=== PATIENT | female | born 1970 | race Caucasian/White ===

== ENCOUNTER 2018-07-10 20:11 | Inpatient (IN) | payer OTHER, SELFPAY ==
[2018-07-10 20:12] VITALS: BP 137/89; PULSE 120; RESP 18; TEMP 36.7; O2SAT 96; BMI 22.4
--- NOTE | 2018-07-10 22:00 | ED.DCSUM_ITS ---
- ER Visit Summary Date of Service: 07/10/18 Chief Complaint: Requesting detox for alcoholism. History of Present Illness: The patient is a [address] of alcohol abuse. States she drinks about 2 bottles of wine each day. Starts drinking early in the morning. She knows she has a problem and wants to get help. States she did go through a detox program I think around [place] around October 2017. She denies any other drug abuse. She denies any recent medical problems. Physical Examination: Well-appearing middle-age female. Vital signs are stable afebrile. Pulse ox 96% on room air. Pulse 120. H EENT exam unremarkable. Moist weeks membranes. Neck nontender no lymphadenopathy. Lungs to auscultation bilaterally. Heart regular rhythm no murmur rate of abdomen soft and nontender. Chest nontender. Extremities moves all 4. Calves nontender no edema. Neurologically she is awake alert with no focal motor deficits. Back exam nontender. Test Results: None Emergency Department Course and Treatment: Patient requesting detox. I very spoken to the hospitalist will be down to evaluate her determine if she meets criteria for admission. Treatment Plan: Patient will be admitted for detox Disposition: Admission Impression: Requesting detox for alcohol abuse History of alcoholism This note was generated with [employer] dictation software. It may contain incorrect words, spelling, and punctuation that were not noted in review of the chart prior to signing ED Disposition - Plan for ED Patient: Referrals: [facility] Doctor,Out of [Primary Care Provider] -
[2018-07-10] MEDS: LORazepam 1 MG Tablet PO (22:43)
[2018-07-10] MEDS: Ondansetron ODT 4 MG Tablet PO (22:43)
[2018-07-10 22:44] VITALS: BP 138/80; PULSE 94; RESP 20; O2SAT 100
--- NOTE | 2018-07-10 23:05 | HP.PCM_ITS ---
Problem List (1) Alcohol withdrawal Status: Acute History of Present Illness Date of Admission: 07/10/18 Chief Complaint: Tremulousness and anxiety. The patient is a 47 year old F who drinks 2 bottles of wine per day, requesting treatment for alcohol withdrawal. Patient's last drink was at 1500 today and since then has been having increasing tremulousness shakiness and anxiety. Patient does get hot flashes but is actually more of a chronic process which she thinks may be attributable to menopause. Patient presents emergency room requesting treatments did receive Ativan in the emergency room. Patient has quit before back in November but relapsed. [] Past Medical History Allergies shrimp Allergy (Verified 07/10/18 20:14) Hives Home Medications: Ambulatory Orders Medication Instructions Recorded NK 07/10/18 Smoking Status: Heavy Smoker (>10/day) Tobacco Use: Cigarettes Alcohol: Heavy Drugs: None - *Family History Maternal History Items: - - No alcoholism Review of Systems Constitutional: Denies: Anorexia, Night Sweats Eyes: Denies: Blurred vision, Double vision HEENT: Denies: Head Aches, Sinus Congestion, Sinus Drainage Cardiovascular: Denies: Chest Pain, Palpitations Respiratory: Denies: Cough, Shortness of breath at rest, Sputum production Gastrointestinal: Reports: Nausea, - - Dry heaves. Denies: Abdominal Pain Genitourinary: Denies: Dysuria Musculoskeletal: Denies: Joint Pain, Joint Tenderness Skin: Denies: Rash, Wounds Neurological: Denies: Blurred vision, Double vision, Focal weakness, Numbness, Tingling Psychiatric: Denies: Anxiety, Depression Endocrine: Denies: Change in Body Habitus, Heat/ Cold Intolerance Hematologic/ Lymphatic: Denies: Easy Bruising, Easy Bleeding, Hx of blood clot Comment: A 10 point review of systems were negative except as mentioned in the history of present illness and the other review of systems. VTE Information - Inpt Only VTE Present on Admission: No VTE Mechan Device Prophylaxis: None VTE Pharm Prophylaxis ordered?: No Reason prophylaxis not ordered:: Procedure Not Indicated Patient Problems: Active and Suspected Problems Alcohol withdrawal (Acute) - Physical Exam General: Alert, Cooperative, No apparent distress, - - Slight tremulousness. Diaphoretic. HEENT: Atraumatic, Normocephalic, - - No scleral icterus Oral: Moist Mucosa, No Gingival or Mucosal Lesions/ Ulcerations Neck: No Nodes, Thyroid Normal Size and Texture Lungs: Clear to auscultation, Normal air movement, No rhonchi, No wheeze Cardiovascular: Regular rate, Regular Rhythm, Normal S1, Normal S2, No murmurs Abdomen: Bowel Sounds Present, Soft, Non Tender, Non-Distended, No Hepato- splenomegaly Extremities: No edema, No Calf Tenderness Skin: No rashes, No breakdown Musculoskeletal: No Tenderness to Palpation of Joints or Extremities, No Muscle Wasting Psych/Mental Status: Appropriate, Anxious Vital Signs Temp Pulse Resp BP Pulse Ox 36.7 C 94 20 H 138/80 H 100 07/10/18 20:12 07/10/18 22:44 07/10/18 22:44 07/10/18 22:44 07/10/18 22:44 Oxygen Delivery Method Room Air Weight: 61.235 kg Body Mass Index (BMI) 22.4 Assessment/Plan All Active Problems Alcohol withdrawal (Acute) 1. Acute alcohol withdrawal: Initial CIWA of 11. Patient agreed to inpatient treatment at this time. Will initiate the medical stabilization protocol with Ativan taper. Additionally patient will have other medications available for other somatic complaints. Patient advised that her symptoms are to improve while she was here but also advised that its potential that, given the amount that she drinks per day, that she may experience worsening symptoms up to 96 hours after her last drink. Patient was informed that seizures are possibility for alcohol withdrawal but she is never had that before so I told her that is un likely to happen for her but certainly could not rule out out. Code Visit Inpatient E&M: 11701 Init Hosp L2
[2018-07-10 23:24] VITALS: BMI 21.5
[2018-07-10 23:40] VITALS: BP 129/72; PULSE 93; RESP 16; TEMP 37.1; O2SAT 97
[2018-07-10 23:51] LABS: Basophil# 0.02 X10^3/uL; Basophil% 0.3 % (0-1); Eosinophil# 0.09 X10^3/uL; Eosinophils% 1.4 % (0-5); Hematocrit 40.6 % (37-47); Hemoglobin 14.3 g/dl (12.0-15.0); Mean Corp Hgb Conc 35.2 g/gl (32-36); Mean Corpuscular Hgb 36.5 pg (27.0-32.0); Mean Corpuscular Volume 103.6 fL (81-99); Mean Platelet Vol. 10.4 fl (6.2-12.0); Monocyte# 0.52 X10^3/uL; Monocyte% 8.1 % (0-10); Neutrophil # 3.99 X10^3/uL (2.7-7.7); POSITIVE COUNT NO; POSITIVE DIFFERENTIAL NO; POSITIVE MORPHOLOGY NO; Platelet Count 160 K/mm3 (150-450); RBC Distribution Width CV 11.6 % (11.6-14.6); RBC Distribution Width SD 43.5 fl (35.1-43.9); Red Blood Count 3.92 M/mm3 (4.2-5.4); White Blood Count 6.4 K/mm3 (4.4-11.0)
[2018-07-11] VITALS (11 sets, daily range): BP systolic 115–141; BP diastolic 72–102; PULSE 80–98; RESP 16–18; TEMP 36.8–37.4; O2SAT 95–98
[2018-07-11 00:08] LABS: ALB/GLOB Ratio 1.2 RATIO (0.9-2.4); AST(SGOT) 157 U/L (15-37); Alanine Aminotransfer ALT/SGPT 189 U/L (13-56); Albumin, Serum 3.9 g/dL (3.2-5.0); Alkaline Phosphatase 109 U/L (45-117); Anion Gap 7 (5-15); BUN 9 mg/dL (7-18); BUN/Creat Ratio 17.7 RATIO (10-20); Calcium,Total 8.8 mg/dL (8.5-10.1); Chloride 105 mmol/L (98-107); Creatinine, Serum 0.51 mg/dL (0.55-1.02); EST Glomerular Filtration Rate 136 mL/min (>60); Est Glom Filt Rate - Afr Amer 165 mL/min (>60); Estimated Creatinine Clearance 120.07 ml/min; Globulin 3.2 g/dL (2.2-4.2); Glucose 82 mg/dL (74-106); Protein, Total 7.1 g/dL (6.4-8.2); Sodium Level 137 mmol/L (136-145)
[2018-07-11 00:33] LABS: Pregnancy, Serum, hCG Quali. NEGATIVE Negative (0-9 Nonpreg)
[2018-07-11] MEDS: hydrOXYzine PAM 25 MG Capsule 50 MG PO ×2 (00:36→17:53)
[2018-07-11] MEDS: traZODone 50 MG Tablet PO ×2 (00:37→21:33)
[2018-07-11] MEDS: Lactated Ringers 1,000 ML 125 ML IV (00:56)
[2018-07-11 02:44] LABS: Amphetamine Urine VISTA NEGATIVE (<1000 ng/mL); Barbiturate Urine VISTA NEGATIVE (< 200 ng/mL); Benzodiazepine Urine VISTA NEGATIVE (< 200 ng/mL); Cocaine Urine VISTA NEGATIVE (< 300 ng/mL); Ecstacy Urine VISTA NEGATIVE (< 500 ng/mL); Methadone Urine VISTA NEGATIVE (< 300 ng/mL); PCP Urine VISTA NEGATIVE (< 25 ng/mL); THC Urine VISTA POSITIVE (< 50 ng/mL); Vista UDS pH Range 5
[2018-07-11] MEDS: LORazepam 1 MG Tablet PO ×5 (02:48→19:02)
[2018-07-11] MEDS: Folic Acid 1 MG Tablet PO (09:15)
[2018-07-11] MEDS: Thiamine Hydrochloride 100 MG Tablet PO (09:15)
[2018-07-11] MEDS: Multivitamins,Therapeutic Tablet 1 TABLET PO (09:15)
--- NOTE | 2018-07-11 14:29 | NEWVISION ---
Patient has discharge plan for a behavioral health /AOD assessment at [facility] in [facility] on 07/21/2018.
--- NOTE | 2018-07-11 14:42 | PCM.PN.HOSP ---
Patient Problems: Active and Suspected Problems Alcohol withdrawal (Acute) Subjective: Patient is admitted with alcohol withdrawal syndrome. Patient drinks about 2 bottles of wine every day. She was on [facility] program in [facility]. Heart rate is in 90s. Blood pressure normal. No tremor/seizure. Vitals/I&O's: Vital Signs Temp Pulse Resp BP Pulse Ox 99.3 F H 97 18 115/79 96 07/11/18 14:04 07/11/18 14:04 07/11/18 14:04 07/11/18 14:04 07/11/18 14:04 Oxygen Delivery Method Room Air Weight: 129 lb 6.581 oz Body Mass Index (BMI) 21.5 Intake and Output for Last 24 Hours 07/09/18 07/10/18 07/11/18 23:59 23:59 23:59 Intake Total 1334 / 1334 Balance 1334 / 1334 General: Alert, Oriented x3, Cooperative HEENT: Atraumatic, PERRLA, EOMI, Normocephalic Neck: Supple, No JVD, Negative Carotid Bruits Lungs: Clear to auscultation, Normal air movement, No rhonchi, No wheeze, No rales Cardiovascular: Regular rate, Regular Rhythm, Normal S1, Normal S2, No murmurs Abdomen: Bowel Sounds Present, Soft, Non Tender, Non-Distended Extremities: No edema, Capillary Refill Less than 3 Seconds Skin: No rashes, No breakdown Musculoskeletal: No Tenderness to Palpation of Joints or Extremities, Arthritic Changes Neurological: Cranial nerves II-XII grossly intact Psych/Mental Status: Normal Affect, Appropriate Laboratory Results 07/10/18 23:34: WBC 6.4, RBC 3.92 L, Hgb 14.3, Hct 40.6, MCV 103.6 H, MCH 36.5 H, MCHC 35.2, RDW 11.6, RDW Differential 43.5, Plt Count 160, MPV 10.4, Immature Gran % (Auto) 0.200, Neut % (Auto) 62.0, Lymph % (Auto) 28.0, [place] % (Auto) 8.1, Eos % (Auto) 1.4, Baso % (Auto) 0.3, Absolute Neuts (auto) 4.0, Absolute Lymphs (auto) 1.80, Total Counted Not Reportable 07/10/18 23:34: Sodium 137, Potassium 4.0, Chloride 105, Carbon Dioxide 25.0, Anion Gap 7, BUN 9, Creatinine 0.51 L, Estim Creat Clear Calc 120.07, Est GFR (MDRD) Af Amer 165, Est GFR (MDRD) Non-Af 136, BUN/Creatinine Ratio 17.7, Glucose 82, Calcium 8.8, Total Bilirubin 0.50, AST 157 H, ALT 189 H, Alkaline Phosphatase 109, Total Protein 7.1, Albumin 3.9, Globulin 3.2, Albumin/Globulin Ratio 1.2 07/10/18 23:34: Ethyl Alcohol 117.0 07/10/18 23:34: Serum , Qual NEGATIVE 07/11/18 01:49: Urine Opiates Screen NEGATIVE, Urine Methadone Screen NEGATIVE, Ur Barbiturates Screen NEGATIVE, Ur Phencyclidine Scrn NEGATIVE, Ur Amphetamines Screen NEGATIVE, U Methamphetamin-MDMA NEGATIVE, U Benzodiazepines Scrn NEGATIVE, Urine Cocaine Screen NEGATIVE, U Cannabinoids Screen POSITIVE H, Ur Drug Screen Comment Current Medications Acetaminophen (Tylenol) 500 mg PO Q4H PRN PRN PRN Reason: Temp > 100.4 F Dicyclomine HCl (Bentyl) 20 mg PO Q6H PRN PRN PRN Reason: abdominal discomfort Folic Acid (Folic Acid) 1 mg PO DAILYCM [facility] Last Admin: 07/11/18 09:15 Dose: 1 mg Hydroxyzine Pamoate (Vistaril Pamoate Capsule) 50 mg PO Q6H PRN PRN PRN Reason: Mild Anxiety (score 1/3) Last Admin: 07/11/18 00:36 Dose: 50 mg Ibuprofen (Motrin) 600 mg PO Q8H PRN PRN PRN Reason: Mild-Moderate Pain (1-5/10) Loperamide HCl (Imodium) 2 - 4 mg PO UD PRN PRN Reason: LOOSE STOOLS Lorazepam (Ativan) 1 mg IV Q4H PRN PRN PRN Reason: Severe Anxiety Lorazepam (Ativan) 1 mg PO Q4H [facility]; Taper Stop: 07/14/18 02:59 Last Admin: 07/11/18 10:56 Dose: 1 mg Methocarbamol (Methocarbamol) 750 mg PO Q6H PRN PRN PRN Reason: Muscle Aches [facility]it[facility] ([facility]amin) [facility] Last Admin: 07/11/18 09:15 Dose: 1 tablet Nicotine (Nicoderm Cq (Pbkc)) 21 mg TRANSDERM. DAILY [facility] Last Admin: 07/11/18 09:15 Dose: 21 mg Thiamine HCl (Vitamin B1) [facility] Last Admin: 07/11/18 09:15 Dose: 100 mg Trazodone [facility] (Desyrel) [facility] Last Admin: 07/11/18 00:37 Dose: 50 mg Medical Necessity - Tobacco Use Smoking Status: Heavy Smoker (>10/day) Tobacco Use: Cigarettes Assessment/Plan All Active Problems Alcohol withdrawal (Acute) This is a 47-year-old female with history of chronic alcohol use and dependence was admitted with acute alcohol withdrawal. Admitting CIWA scale 11. Patient drinks 2 bottles of wine every day. Patient denies any history of alcohol withdrawal seizure. Patient denies history of alcoholic hepatitis/cirrhosis or history of GI bleed. 1. Acute alcohol withdrawal syndrome: Patient is being admitted on regular MedSurg floor. Current CIWA score is 1 or 2. Patient seen by [facility] staff for outpatient rehab. Advised alcohol cessation. 2. Alcoholic hepatitis: ALT 189, AST 157, alkaline phosphatase 109. Albumin 3.9. Total bili normal. Right upper quadrant sonogram ordered. Monitor LFT and GGT. 3. Marijuana use: U tox positive of cannabinoids. 4. DVT prophylaxis: Lovenox 40 minutes subcu daily. Discontinue if platelet count drops less than 50,000 or hemoglobin less than 8 g% Active Medications Acetaminophen (Tylenol) 500 mg PO Q4H PRN PRN PRN Reason: Temp > 100.4 F Dicyclomine HCl (Bentyl) 20 mg PO Q6H PRN PRN PRN Reason: abdominal discomfort Folic [facility] (F[facility] Acid) [facility] Last Admin: 07/11/18 09:15 Dose: 1 mg Hydroxyzine Pamoate (Vistaril Pamoate Capsule) 50 mg PO Q6H PRN PRN PRN Reason: Mild Anxiety (score 1/3) Last Admin: 07/11/18 00:36 Dose: 50 mg Ibuprofen (Motrin) 600 mg PO Q8H PRN PRN PRN Reason: Mild-Moderate Pain (1-5/10) Loperamide HCl (Imodium) 2 - 4 mg PO UD PRN PRN Reason: LOOSE STOOLS Lorazepam (Ativan) 1 mg IV Q4H PRN PRN PRN Reason: Severe Anxiety Lorazepam (Ativan) 1 mg PO Q4H [facility]; Taper Stop: 07/14/18 02:59 Last Admin: 07/11/18 14:49 Dose: 1 mg Methocarbamol (Methocarbamol) 750 mg PO Q6H PRN PRN PRN Reason: Muscle Aches Multivitamins (Multivitamin) [facility] Last Admin: 07/11/18 09:15 Dose: 1 tablet Nicotine (Nicoderm Cq (Pbkc)) 21 mg TRANSDERM. DAILY [facility] Last Admin: 07/11/18 09:15 Dose: 21 mg Thiamine HCl (Vitamin B1) [facility] Last Admin: 07/11/18 09:15 Dose: 100 mg Trazodone HCl (Desyrel) 50 mg PO QHS [facility] Last Admin: 07/11/18 00:37 Dose: 50 mg Code Visit Inpatient E&M: 70480 Subs Hosp L2
--- NOTE | 2018-07-11 14:47 | PN_ITS ---
Patient Problems: Active and Suspected Problems Alcohol withdrawal (Acute) Subjective: Patient is admitted with alcohol withdrawal syndrome. Patient drinks about 2 bottles of wine every day. She was on [facility] program in [facility]. Heart rate is in 90s. Blood pressure normal. No tremor/seizure. Vitals/I&O's: Vital Signs Temp Pulse Resp BP Pulse Ox 99.3 F H 97 18 115/79 96 07/11/18 14:04 07/11/18 14:04 07/11/18 14:04 07/11/18 14:04 07/11/18 14:04 Oxygen Delivery Method Room Air Weight: 129 lb 6.581 oz Body Mass Index (BMI) 21.5 Intake and Output for Last 24 Hours 07/09/18 07/10/18 07/11/18 23:59 23:59 23:59 Intake Total 1334 / 1334 Balance 1334 / 1334 General: Alert, Oriented x3, Cooperative HEENT: Atraumatic, PERRLA, EOMI, Normocephalic Neck: Supple, No JVD, Negative Carotid Bruits Lungs: Clear to auscultation, Normal air movement, No rhonchi, No wheeze, No rales Cardiovascular: Regular rate, Regular Rhythm, Normal S1, Normal S2, No murmurs Abdomen: Bowel Sounds Present, Soft, Non Tender, Non-Distended Extremities: No edema, Capillary Refill Less than 3 Seconds Skin: No rashes, No breakdown Musculoskeletal: No Tenderness to Palpation of Joints or Extremities, Arthritic Changes Neurological: Cranial nerves II-XII grossly intact Psych/Mental Status: Normal Affect, Appropriate Laboratory Results 07/10/18 23:34: WBC 6.4, RBC 3.92 L, Hgb 14.3, Hct 40.6, MCV 103.6 H, MCH 36.5 H , MCHC 35.2, RDW 11.6, RDW Differential 43.5, Plt Count 160, MPV 10.4, Immature Gran % (Auto) 0.200, Neut % (Auto) 62.0, Lymph % (Auto) 28.0, [place] % (Auto) 8.1, Eos % (Auto) 1.4, Baso % (Auto) 0.3, Absolute Neuts (auto) 4.0, Absolute Lymphs (auto) 1.80, Total Counted Not Reportable 07/10/18 23:34: Sodium 137, Potassium 4.0, Chloride 105, Carbon Dioxide 25.0, Anion Gap 7, BUN 9, Creatinine 0.51 L, Estim Creat Clear Calc 120.07, Est GFR (MDRD) Af Amer 165, Est GFR (MDRD) Non-Af 136, BUN/Creatinine Ratio 17.7, Glucose 82, Calcium 8.8, Total Bilirubin 0.50, AST 157 H, ALT 189 H, Alkaline Phosphatase 109, Total Protein 7.1, Albumin 3.9, Globulin 3.2, Albumin/Globulin Ratio 1.2 07/10/18 23:34: Ethyl Alcohol 117.0 07/10/18 23:34: Serum , Qual NEGATIVE 07/11/18 01:49: Urine Opiates Screen NEGATIVE, Urine Methadone Screen NEGATIVE, Ur Barbiturates Screen NEGATIVE, Ur Phencyclidine Scrn NEGATIVE, Ur Amphetamines Screen NEGATIVE, U Methamphetamin-MDMA NEGATIVE, U Benzodiazepines Scrn NEGATIVE, Urine Cocaine Screen NEGATIVE, U Cannabinoids Screen POSITIVE H, Ur Drug Screen Comment Current Medications Acetaminophen (Tylenol) 500 mg PO Q4H PRN PRN PRN Reason: Temp > 100.4 F Dicyclomine HCl (Bentyl) 20 mg PO Q6H PRN PRN PRN Reason: abdominal discomfort Folic Acid (Folic Acid) 1 mg PO DAILYCM [facility] Last Admin: 07/11/18 09:15 Dose: 1 mg Hydroxyzine Pamoate (Vistaril Pamoate Capsule) 50 mg PO Q6H PRN PRN PRN Reason: Mild Anxiety (score 1/3) Last Admin: 07/11/18 00:36 Dose: 50 mg Ibuprofen (Motrin) 600 mg PO Q8H PRN PRN PRN Reason: Mild-Moderate Pain (1-5/10) Loperamide HCl (Imodium) 2 - 4 mg PO UD PRN PRN Reason: LOOSE STOOLS Lorazepam (Ativan) 1 mg IV Q4H PRN PRN PRN Reason: Severe Anxiety Lorazepam (Ativan) 1 mg PO Q4H [facility]; Taper Stop: 07/14/18 02:59 Last Admin: 07/11/18 10:56 Dose: 1 mg Methocarbamol (Methocarbamol) 750 mg PO Q6H PRN PRN PRN Reason: Muscle Aches [facility]) [facility] Last Admin: 07/11/18 09:15 Dose: 1 tablet Nicotine (Nicoderm Cq (Pbkc)) 21 mg TRANSDERM. DAILY [facility] Last Admin: 07/11/18 09:15 Dose: 21 mg Thiamine HCl (Vitamin B1) [facility] Last Admin: 07/11/18 09:15 Dose: 100 mg Trazodone HCl (Desyrel) [facility] Last Admin: 07/11/18 00:37 Dose: 50 mg Medical Necessity - Tobacco Use Smoking Status: Heavy Smoker (>10/day) Tobacco Use: Cigarettes Assessment/Plan All Active Problems Alcohol withdrawal (Acute) This is a 47-year-old female with history of chronic alcohol use and dependence was admitted with acute alcohol withdrawal. Admitting CIWA scale 11. Patient drinks 2 bottles of wine every day. Patient denies any history of alcohol withdrawal seizure. Patient denies history of alcoholic hepatitis/cirrhosis or history of GI bleed. 1. Acute alcohol withdrawal syndrome: Patient is being admitted on regular MedSurg floor. Current CIWA score is 1 or 2. Patient seen by [facility] staff for outpatient rehab. Advised alcohol cessation. 2. Alcoholic hepatitis: ALT 189, AST 157, alkaline phosphatase 109. Albumin 3.9. Total bili normal. Right upper quadrant sonogram ordered. Monitor LFT and GGT. 3. Marijuana use: U tox positive of cannabinoids. 4. DVT prophylaxis: Lovenox 40 minutes subcu daily. Discontinue if platelet count drops less than 50,000 or hemoglobin less than 8 g% Active Medications Acetaminophen (Tylenol) 500 mg PO Q4H PRN PRN PRN Reason: Temp > 100.4 F Dicyclomine HCl (Bentyl) 20 mg PO Q6H PRN PRN PRN Reason: abdominal discomfort Folic Acid (F[facility] Acid) [facility] Last Admin: 07/11/18 09:15 Dose: 1 mg Hydroxyzine Pamoate (Vistaril Pamoate Capsule) 50 mg PO Q6H PRN PRN PRN Reason: Mild Anxiety (score 1/3) Last Admin: 07/11/18 00:36 Dose: 50 mg Ibuprofen (Motrin) 600 mg PO Q8H PRN PRN PRN Reason: Mild-Moderate Pain (1-5/10) Loperamide HCl (Imodium) 2 - 4 mg PO UD PRN PRN Reason: LOOSE STOOLS Lorazepam (Ativan) 1 mg IV Q4H PRN PRN PRN Reason: Severe Anxiety Lorazepam (Ativan) 1 mg PO Q4H [facility]; Taper Stop: 07/14/18 02:59 Last Admin: 07/11/18 14:49 Dose: 1 mg Methocarbamol (Methocarbamol) 750 mg PO Q6H PRN PRN PRN Reason: Muscle Aches Multivitamins (Mult[facility]itamin) [facility] Last Admin: 07/11/18 09:15 Dose: 1 tablet Nicotine (Nicoderm Cq (Pbkc)) 21 mg TRANSDERM. DAILY [facility] Last Admin: 07/11/18 09:15 Dose: 21 mg Thiamine HCl (Vitamin B1) [facility] Last Admin: 07/11/18 09:15 Dose: 100 mg Trazodone HCl (Desyrel) 50 mg PO QHS [facility] Last Admin: 07/11/18 00:37 Dose: 50 mg Code Visit Inpatient E&M: 54849 Subs Hosp L2
--- NOTE | 2018-07-11 14:56 | US_ITS ---
STUDY: ABDOMINAL ULTRASOUND - RIGHT UPPER QUADRANT REASON FOR VISIT: Female, 47 years old. Elevated LFTs TECHNIQUE: Ultrasound evaluation of the right upper quadrant was performed with real-time and static bahena-scale imaging. TECHNICAL QUALITY: Adequate. COMPARISON: None. FINDINGS: Liver: The liver measures 15 cm. There is fatty echogenicity of the liver. The bile ducts are within normal limits. There is hepatic color flow. The direction of portal flow is hepatopetal. There is no demonstrated mass lesion. Gallbladder: Normal distended gallbladder. The gallbladder wall measures 3 mm. There is a negative sonographic Arboleda's sign. There is no pericholecystic fluid. There are no gallstones. Common Bile Duct (C.B.D.): The common bile duct measures 5 mm. Pancreas: Normal size of the head, body and tail of the pancreas. There is normal echogenicity of the pancreas. There is no demonstrated pancreatic mass or cyst. Right Kidney: Normal size of the right kidney. The right kidney measures 10.9 x 5.8 x 4.0 cm. Normal renal cortex. The right cortex measures 1.8 cm. There is no demonstrated renal mass or cyst. There is no right hydronephrosis. US/Abdomen Limited IMPRESSION: Fatty liver. Electronically Signed: Patrick Bhandari DO at 22:54 EST Tel [phone], Service support ,
[2018-07-11] MEDS: Enoxaparin 40 MG/0.4 ML Syringe SC (15:20)
[2018-07-11 15:34] LABS: AST(SGOT) 163 U/L (15-37); Alanine Aminotransfer ALT/SGPT 191 U/L (13-56); Alkaline Phosphatase 108 U/L (45-117); Bilirubin, Direct 0.21 mg/dL (0.00-0.30); GGTP 280 U/L (5-55); Globulin 3.1 g/dL (2.2-4.2); Protein, Total 7.1 g/dL (6.4-8.2)
[2018-07-12 01:28] VITALS: BP 138/97; PULSE 87; RESP 16; TEMP 36.8; O2SAT 98
[2018-07-12] MEDS: LORazepam 1 MG Tablet PO ×4 (01:31→18:07)
[2018-07-12 06:46] LABS: Anion Gap 6 (5-15); BUN 11 mg/dL (7-18); BUN/Creat Ratio 18.7 RATIO (10-20); Chloride 104 mmol/L (98-107); Creatinine, Serum 0.59 mg/dL (0.55-1.02); EST Glomerular Filtration Rate 115 mL/min (>60); Est Glom Filt Rate - Afr Amer 139 mL/min (>60); Estimated Creatinine Clearance 103.79 ml/min; Glucose 81 mg/dL (74-106); Sodium Level 138 mmol/L (136-145)
[2018-07-12] MEDS: Thiamine Hydrochloride 100 MG Tablet PO (08:52)
[2018-07-12] MEDS: Folic Acid 1 MG Tablet PO (08:52)
[2018-07-12] MEDS: Multivitamins,Therapeutic Tablet 1 TABLET PO (08:52)
[2018-07-12 08:55] VITALS: PULSE 84
[2018-07-12 10:59] VITALS: BP 116/84; PULSE 97; RESP 16; TEMP 37.1; O2SAT 97
--- NOTE | 2018-07-12 11:03 | PCM.PN.HOSP ---
Patient Problems: Active and Suspected Problems Alcohol withdrawal (Acute) Subjective: Patient face still looks flushed. Tremors is well controlled. Still anxious and mild restlessness. Vitals/I&O's: Vital Signs Temp Pulse Resp BP Pulse Ox 98.8 F 97 16 116/84 H 97 07/12/18 10:59 07/12/18 10:59 07/12/18 10:59 07/12/18 10:59 07/12/18 10:59 Oxygen Delivery Method Room Air Weight: 129 lb 6.581 oz Body Mass Index (BMI) 21.5 Intake and Output for Last 24 Hours 07/10/18 07/11/18 07/12/18 23:59 23:59 23:59 Intake Total 1334 / 1334 800 / 800 Balance 1334 / 1334 800 / 800 General: Alert, Oriented x3, Cooperative HEENT: Atraumatic, PERRLA, EOMI, Normocephalic Neck: Supple, No JVD, Negative Carotid Bruits Lungs: Clear to auscultation, Normal air movement, No rhonchi, No wheeze, No rales Cardiovascular: Regular rate, Regular Rhythm, Normal S1, Normal S2, No murmurs Abdomen: Bowel Sounds Present, Soft, Non Tender, Non-Distended Extremities: No edema, Capillary Refill Less than 3 Seconds Skin: No rashes, No breakdown Musculoskeletal: No Tenderness to Palpation of Joints or Extremities, Arthritic Changes Neurological: Cranial nerves II-XII grossly intact Psych/Mental Status: Normal Affect, Appropriate Laboratory Results 07/10/18 23:34: Total Bilirubin 0.50, Direct Bilirubin 0.21, GGT 280 H, AST 163 H, ALT 191 H, Alkaline Phosphatase 108, Total Protein 7.1, Albumin 4.0, Globulin 3.1 07/12/18 05:43: Sodium 138, Potassium 4.0, Chloride 104, Carbon Dioxide 28.0, Anion Gap 6, BUN 11, Creatinine 0.59, Estim Creat Clear Calc 103.79, Est GFR (MDRD) Af Amer 139, Est GFR (MDRD) Non-Af 115, BUN/Creatinine Ratio 18.7, Glucose 81, Calcium 9.0 Current Medications Acetaminophen (Tylenol) 500 mg PO Q4H PRN PRN PRN Reason: Temp > 100.4 F Dicyclomine HCl (Bentyl) 20 mg PO Q6H PRN PRN PRN Reason: abdominal discomfort Enoxaparin Sodium (Lovenox) 40 mg SC DAILY [facility] Last Admin: 07/11/18 15:20 Dose: 40 mg [facility] Last Admin: 07/12/18 08:52 Dose: 1 mg Hydroxyzine Pamoate (Vistaril Pamoate Capsule) 50 mg PO Q6H PRN PRN PRN Reason: Mild Anxiety (score 1/3) Last Admin: 07/11/18 17:53 Dose: 50 mg Ibuprofen (Motrin) 600 mg PO Q8H PRN PRN PRN Reason: Mild-Moderate Pain (1-5/10) Loperamide HCl (Imodium) 2 - 4 mg PO UD PRN PRN Reason: LOOSE STOOLS Lorazepam (Ativan) 1 mg IV Q4H PRN PRN PRN Reason: Severe Anxiety Lorazepam (Ativan) 1 mg PO Q6H [facility]; Taper Stop: 07/14/18 02:59 Last Admin: 07/12/18 06:36 Dose: 1 mg Methocarbamol (Methocarbamol) 750 mg PO Q6H PRN PRN PRN Reason: Muscle Aches Multivitamins (Multivitamin) [facility] Last Admin: 07/12/18 08:52 Dose: 1 tablet Nicotine (Nicoderm Cq (Pbkc)) 21 mg TRANSDERM. DAILY [facility] Last Admin: 07/11/18 09:15 Dose: 21 mg Thiamine HCl (Vitamin B1) [facility] Last Admin: 07/12/18 08:52 Dose: 100 mg Trazodone HCl (Desyrel) 50 mg PO QHS [facility] Last Admin: 07/11/18 21:33 Dose: 50 mg Medical Necessity - Tobacco Use Smoking Status: Heavy Smoker (>10/day) Tobacco Use: Cigarettes Assessment/Plan All Active Problems Alcohol withdrawal (Acute) This is a 47-year-old female with history of chronic alcohol use and dependence was admitted with acute alcohol withdrawal. Admitting CIWA scale 11. Patient drinks 2 bottles of wine every day. Patient denies any history of alcohol withdrawal seizure. Patient denies history of alcoholic hepatitis/cirrhosis or history of GI bleed. 1. Acute alcohol withdrawal syndrome: Patient is being admitted on regular MedSurg floor. Current CIWA score is 1 or 2. Patient seen by [facility] staff for outpatient rehab. Advised alcohol cessation. 2. Alcoholic hepatitis: ALT 189, AST 157, alkaline phosphatase 109. Albumin 3.9. Total bili normal. Repeat LFT shows improving trends. Right upper quadrant sonogram reported as fatty liver. GGT is elevated most probably secondary to alcoholic hepatitis. 3. Marijuana use: U tox positive of cannabinoids. 4. DVT prophylaxis: Lovenox 40 minutes subcut daily. Discontinue if platelet count drops less than 50,000 or hemoglobin less than 8 g% Laboratory Results 07/10/18 23:34: Total Bilirubin 0.50, Direct Bilirubin 0.21, GGT 280 H, AST 163 H, ALT 191 H, Alkaline Phosphatase 108, Total Protein 7.1, Albumin 4.0, Globulin 3.1 07/12/18 05:43: Sodium 138, Potassium 4.0, Chloride 104, Carbon Dioxide 28.0, Anion Gap 6, BUN 11, Creatinine 0.59, Estim Creat Clear Calc 103.79, Est GFR (MDRD) Af Amer 139, Est GFR (MDRD) Non-Af 115, BUN/Creatinine Ratio 18.7, Glucose 81, Calcium 9.0 07/12/18 05:43: Total Bilirubin 0.80, Direct Bilirubin 0.23, AST 98 H, ALT 138 H, Alkaline Phosphatase 115, Total Protein 6.4, Albumin 3.3, Globulin 3.1 Code Visit Inpatient E&M: 81077 Subs Hosp L2
[2018-07-12] MEDS: Enoxaparin 40 MG/0.4 ML Syringe SC (11:04)
[2018-07-12 11:26] LABS: AST(SGOT) 98 U/L (15-37); Alanine Aminotransfer ALT/SGPT 138 U/L (13-56); Albumin, Serum 3.3 g/dL (3.2-5.0); Alkaline Phosphatase 115 U/L (45-117); Bilirubin, Direct 0.23 mg/dL (0.00-0.30); Globulin 3.1 g/dL (2.2-4.2); Protein, Total 6.4 g/dL (6.4-8.2)
[2018-07-12 14:34] VITALS: BP 132/96; PULSE 107; RESP 16; TEMP 37.1; O2SAT 98
[2018-07-12] MEDS: hydrOXYzine PAM 25 MG Capsule 50 MG PO ×2 (14:45→22:04)
[2018-07-12 19:52] VITALS: BP 127/82; PULSE 98; RESP 16; TEMP 37; O2SAT 98
[2018-07-12 19:57] VITALS: BP 127/82; PULSE 98; RESP 16; TEMP 37
[2018-07-12] MEDS: traZODone 50 MG Tablet PO (22:04)
[2018-07-13 03:19] VITALS: BP 150/99; PULSE 81; RESP 16; TEMP 36.6; O2SAT 98
[2018-07-13 03:23] VITALS: BP 150/99; PULSE 81; RESP 16; TEMP 36.6
[2018-07-13] MEDS: LORazepam 1 MG Tablet PO ×2 (03:24→10:38)
[2018-07-13 07:14] LABS: Absolute Lymphocyte Count 1.37 X10^3/ul (0.83-4.51); Absolute Neutrophil Count 2.9 X10^3/uL (2.0-7.7); Basophil# 0.02 X10^3/uL; Basophil% 0.4 % (0-1); Eosinophil# 0.12 X10^3/uL; Eosinophils% 2.4 % (0-5); Hematocrit 40.7 % (37-47); Hemoglobin 13.7 g/dl (12.0-15.0); Lymphocyte # 1.37 X10^3/ul (4.0); Lymphocyte % 27.6 % (19-41); Mean Corp Hgb Conc 33.7 g/gl (32-36); Mean Corpuscular Volume 104.1 fL (81-99); Monocyte# 0.53 X10^3/uL; Monocyte% 10.7 % (0-10); Neutrophil # 2.93 X10^3/uL (2.7-7.7); Neutrophil % 58.9 % (47-70); Platelet Count 121 K/mm3 (150-450); RBC Distribution Width CV 11.8 % (11.6-14.6); Red Blood Count 3.91 M/mm3 (4.2-5.4)
[2018-07-13 07:24] LABS: POSITIVE COUNT NO; POSITIVE DIFFERENTIAL NO; POSITIVE MORPHOLOGY NO
[2018-07-13 10:00] VITALS: BP 127/88; PULSE 81; RESP 16; TEMP 36.8; O2SAT 98
[2018-07-13] MEDS: Thiamine Hydrochloride 100 MG Tablet PO (10:35)
[2018-07-13] MEDS: Multivitamins,Therapeutic Tablet 1 TABLET PO (10:35)
[2018-07-13] MEDS: Folic Acid 1 MG Tablet PO (10:35)
--- NOTE | 2018-07-13 11:30 | PCM.DC ---
- Discharge Diagnoses Current Active Problems: Current Active and Chronic Problems Alcohol withdrawal (Acute) You will use the following diet at home:: Regular Your food should be the consistency of: Regular Discharge Activity: May Not Drive Call your doctor if you observe: Fever of 101 or Higher, Numbness or Tingling, Inability to have a bowel movement, Shortness of breath, Fainting spells, Swelling in the ankles, Increased palpitations (irregular heartbeat) Additional Instructions: Follow-up outpatient drug rehab set up by [facility] Allergies/Adverse Reactions: Allergies shrimp Allergy (Verified 07/10/18 20:14) Hives Medications to take at Discharge Folic Acid 1 mg PO DAILYCM tablet 07/13/18 Nicotine [Nicoderm Cq] 21 mg TRANSDERM. DAILY patch 07/13/18 Thiamine Hydrochloride [Vitamin B1] 100 mg PO DAILYCM tablet 07/13/18 Primary Care Physician: Anderson White,Out of [Primary Care Provider] - Please follow up with your Primary Care Physician in: in 2 week Test Results: Test results from this visit will be discussed in further detail at your follow-up appointment, if applicable.
--- NOTE | 2018-07-13 11:39 | DCINST_ITS ---
- Discharge Diagnoses Current Active Problems: Current Active and Chronic Problems Alcohol withdrawal (Acute) You will use the following diet at home:: Regular Your food should be the consistency of: Regular Discharge Activity: May Not Drive Call your doctor if you observe: Fever of 101 or Higher, Numbness or Tingling, Inability to have a bowel movement, Shortness of breath, Fainting spells, Swelling in the ankles, Increased palpitations (irregular heartbeat) Additional Instructions: Follow-up outpatient drug rehab set up by [facility] Allergies/Adverse Reactions: Allergies shrimp Allergy (Verified 07/10/18 20:14) Hives Medications to take at Discharge Folic Acid 1 mg PO DAILYCM tablet 07/13/18 Nicotine [Nicoderm Cq] 21 mg TRANSDERM. DAILY patch 07/13/18 Thiamine Hydrochloride [Vitamin B1] 100 mg PO DAILYCM tablet 07/13/18 Primary Care Physician: Anderson White,Out of [Primary Care Provider] - Please follow up with your Primary Care Physician in: in 2 week Test Results: Test results from this visit will be discussed in further detail at your follow- up appointment, if applicable.
--- NOTE | 2018-07-13 11:39 | DS.PCM_ITS ---
Discharge Date and Diagnosis Date of Admission: 07/10/18 Date of Discharge: 07/13/18 - Primary Discharge Diagnosis Active and Suspected Problems Alcohol withdrawal (Acute) Hospital Course and Treatment Summary of Care Provided: [] This is a 47-year-old female with history of chronic alcohol use and dependence was admitted with acute alcohol withdrawal. Admitting CIWA scale 11. Patient drinks 2 bottles of wine every day. Patient denies any history of alcohol withdrawal seizure. Patient denies history of alcoholic hepatitis/cirrhosis or history of GI bleed. 1. Acute alcohol withdrawal syndrome: Patient is being admitted on regular MedSurg floor. Current CIWA score is 1 or 2. Patient seen by [facility] staff for outpatient rehab. Advised alcohol cessation. Patient was advised to take thiamine and folic acid [id number]. Nicotine patches prescription was given. 2. Alcoholic hepatitis: ALT 189, AST 157, alkaline phosphatase 109. Albumin 3.9. Total bili normal. Repeat LFT shows improving trends. Right upper quadrant sonogram reported as fatty liver. GGT is elevated most probably secondary to alcoholic hepatitis. 3. Marijuana use: U tox positive of cannabinoids. 4. DVT prophylaxis: Lovenox 40 minutes subcut daily. Discontinue if platelet count drops less than 50,000 or hemoglobin less than 8 g%. Discharge home. Follow with PCP in 1-2 weeks. Discharge medication reconciliation done. Discharge follow-up instructions completed. Discharge process discussed with the patient and all questions were answered to patient's satisfaction. Laboratory Results 07/10/18 23:34: Total Bilirubin 0.50, Direct Bilirubin 0.21, GGT 280 H, AST 163 H, ALT 191 H, Alkaline Phosphatase 108, Total Protein 7.1, Albumin 4.0, Globulin 3.1 07/12/18 05:43: Sodium 138, Potassium 4.0, Chloride 104, Carbon Dioxide 28.0, Anion Gap 6, BUN 11, Creatinine 0.59, Estim Creat Clear Calc 103.79, Est GFR (MDRD) Af Amer 139, Est GFR (MDRD) Non-Af 115, BUN/Creatinine Ratio 18.7, Glucose 81, Calcium 9.0 07/12/18 05:43: Total Bilirubin 0.80, Direct Bilirubin 0.23, AST 98 H, ALT 138 H , Alkaline Phosphatase 115, Total Protein 6.4, Albumin 3.3, Globulin 3.1 Subjective: Seen and examined. Patient symptom has been well controlled. She is a stable. No tremors. No hallucinations. - Physical Exam General: Alert, Oriented x3, Cooperative HEENT: Atraumatic, PERRLA, EOMI, Normocephalic Neck: Supple, No JVD, Negative Carotid Bruits Lungs: Clear to auscultation, Normal air movement, No rhonchi, No wheeze, No rales Cardiovascular: Regular rate, Regular Rhythm, Normal S1, Normal S2, No murmurs Abdomen: Bowel Sounds Present, Soft, Non Tender, Non-Distended Extremities: No edema, Capillary Refill Less than 3 Seconds Skin: No rashes, No breakdown Musculoskeletal: No Tenderness to Palpation of Joints or Extremities, Muscle Wasting Neurological: Cranial nerves II-XII grossly intact Psych/Mental Status: Normal Affect, Appropriate Vital Signs Temp Pulse Resp BP Pulse Ox 98.2 F 81 16 127/88 H 98 07/13/18 10:00 07/13/18 10:00 07/13/18 10:00 07/13/18 10:00 07/13/18 10:00 Oxygen Delivery Method Room Air Weight: 129 lb 6.581 oz Body Mass Index (BMI) 21.5 Intake and Output for Last 24 Hours 07/11/18 07/12/18 07/13/18 23:59 23:59 23:59 Intake Total 1334 / 1334 1040 / 1040 720 / 720 Balance 1334 / 1334 1040 / 1040 720 / 720 Laboratory Tests Past 24 Hrs 07/13/18 05:35 WBC 5.0 RBC 3.91 L Hgb 13.7 Hct 40.7 MCV 104.1 H MCH 35.0 H MCHC 33.7 RDW 11.8 RDW Differential 45.0 H Plt Count 121 L MPV 11.0 Immature Gran % (Auto) 0.000 Neut % (Auto) 58.9 Lymph % (Auto) 27.6 [place] % (Auto) 10.7 H Eos % (Auto) 2.4 Baso % (Auto) 0.4 Absolute Neuts (auto) 2.9 Absolute Lymphs (auto) 1.37 Total Counted Not Reportable Discharge Activity: May Not Drive Call your doctor if you observe: Fever of 101 or Higher, Numbness or Tingling, Inability to have a bowel movement, Shortness of breath, Fainting spells, Swelling in the ankles, Increased palpitations (irregular heartbeat) Home Medications: Medications to take at Discharge Folic Acid 1 mg PO DAILYCM tablet 07/13/18 Nicotine [Nicoderm Cq (PBKC)] 21 mg TRANSDERM. DAILY #21 patch 07/13/18 Thiamine Hydrochloride [Vitamin B1] 100 mg PO DAILYCM tablet 07/13/18 Following Prescrptions Were Given to Patient: Nicotine [Nicoderm Cq (PBKC)] 21 mg TRANSDERM. DAILY #21 patch Primary Care Physician: Anderson White,Out of [Primary Care Provider] - Please follow up with your Primary Care Physician in: in 2 week Medical Necessity - Tobacco Use Smoking Status: Heavy Smoker (>10/day) Tobacco Use: Cigarettes Meaningful Use Info Meaningful Use Diagnoses (Choose all that apply): None applicable Code Visit Inpatient E&M: 42724 Disch Hosp
== END 2018-07-13 12:40 | disposition home or self-care (01) | DRG 897 ==
LOC: ED 21:09 → MS3 22:45
PROVIDERS: Emergency Provider Emergency Medicine; Visit Provider Internal Medicine
DX: F10.239 Alcohol dependence with withdrawal, unspecified (principal); Y90.5 Blood alcohol level of 100-119 mg/100 ml; F12.90 Cannabis use, unspecified, uncomplicated; K70.10 Alcoholic hepatitis without ascites; F17.210 Nicotine dependence, cigarettes, uncomplicated
CPT/HCPCS: 36415; 76705; 80048; 80053; 80076; 80307; 80320; 82977; 84703; 85025; 97802; 99281; 99406; J7120; G0480

== ENCOUNTER 2022-09-21 12:58 | Inpatient (IN) | payer BC, SELFPAY ==
[2022-09-21 12:59] VITALS: BP 135/100; PULSE 115; RESP 16; TEMP 36.6; O2SAT 98; BMI 22.6
--- NOTE | 2022-09-21 13:21 | EDS_ITS ---
HPI History of Present Illness Chief Complaint: Substance Abuse Detail of Chief Complaint: Alcohol abuse requesting detox. Informant: patient and family Onset/Context/Timing Onset: Month(s) Context: Gradual Onset Timing: Continuous Current Severity: Moderate Maximum Severity: Moderate Associated Symptoms Associated Symptoms: Positive for vomiting* and diarrhea* Narrative Narrative: 52-year-old female who has a history of alcohol abuse. Her last detox was about 3 years ago. States she drinks 1-1/2-2 bottles of wine a day and often twisted tea. Has drank today. She also has a history of PTSD from family members being killed in a car accident. She is requesting detox. Says she has had some nausea and vomiting denies any melena or hematemesis denies any other illness. Prior similar symptoms: Yes Recent Illness/Hospitalization: No PFSH PFSH Medical History no medical history Home Medications progesterone micronized 100 mg capsule 100 mg PO DAILY 09/21/22 [History Last Taken Unknown] Allergy/AdvReac Type Severity Reaction Status Date / Time shrimp Allergy Hives Verified 09/21/22 13:01 Surgical History no surgical history Social History Smoking Status: Heavy Smoker (>10/day) ROS ROS ED ROS Narrative Nausea and vomiting. Review of Systems ROS Unobtainable: Denies due to encephalopathy Constitutional Constitutional ED: Denies chills or fever(s) Eyes Eyes: Denies blurry vision ENT ENT ED: Denies ear pain Cardiovascular Cardiovascular: Denies chest pain Respiratory/Chest Respiratory/Chest: Denies cough or dyspnea Gastrointestinal Gastrointestinal: Reports diarrhea, nausea and vomiting; Denies abdominal pain, constipation or melena Genitourinary Genitourinary ED: Denies dysuria Musculoskeletal Musculoskeletal: Denies arthralgias Integumentary Denies abscess Neurologic Neurologic: Denies headache(s) Psychiatric Psychiatric: Denies anxiety Endocrine Endocrinology: Denies cold intolerance Hematologic/Lymphatic Hematologic/Lymphatic: Denies easy bleeding Allergic/Immunologic Allergic/Immunologic ED: Denies mouth swelling or tongue swelling EXAM Physical Exam Narrative Exam Narrative: 52-year-old female no acute distress vital signs stable afebrile. She is very anxious and at times tearful. H EENT exam unremarkable. Neck nontender. No lymphadenopathy. Lungs clear to auscultation bilaterally. Heart tachycardic rate about 115 no murmur. Abdomen soft nontender, nondistended normal bowel sounds no peritoneal signs. Moving all 4 extremities. Nontender no edema. Neurologically she is awake and alert with no focal motor deficits. Const Vital Signs: 09/21/22 12:59 09/21/22 14:09 Temperature 97.8 F 98.2 F Temperature Source Temporal Temporal Pulse Rate 115 H 87 Respiratory Rate 16 18 Blood Pressure 135/100 H 139/93 H Blood Pressure Mean 111 108 Pulse Ox 98 94 Oxygen Delivery Method Room Air Room Air Positive well nourished and well developed; Negative for obese, cachectic, contractures or unkempt General Appearance ED: well developed and NAD; Negative for unkempt, cachectic, contractures or pallor Nutritional Appearance: Negative for cachectic or obese HEENT Reports moist mucous membranes; Denies dry mucous membranes atraumatic; Negative for trauma or tenderness Mouth ED: No dry mucous membranes Mouth: No dry mucous membranes Eyes PERRL and EOMs intact bilaterally General Eye ED: Negative for pale conjunctiva or scleral icterus Neck no lymphadenopathy, supple and no JVD Thyroid: Negative for tender Lymph Lymphatic: no lymphadenopathy noted; Negative for lymphadenopathy Chest Wall inspection of chest normal and palpation of chest normal Chest: Negative for other Resp normal respiratory effort and clear to auscultation bilaterally Effort and Inspection: Negative for retractions Auscultation: Negative for rales, rhonchi or wheezes Cardio regular rhythm, S1 normal heart sound, S2 normal heart sound and no murmurs; Negative for regular rate Rate: tachycardic GI soft to palpation, non-tender, non-distended and no masses Inspection: Negative for abdominal distention Auscultation: Negative for hyperactive bowel sounds Palpation: Negative for tender or guarding Bladder / Kidney Exam: No other Back/Spine no CVA tenderness General Back: Negative for CVA tenderness Cervical Spine: Negative for cervical spine tenderness Thoracic Spine / Upper Back: Negative for thoracic spinal tenderness Lumbar Spine / Lower Back: Negative for lumbar spinal tenderness Coccyx: Negative for swelling Extremity General Extremety ED: Negative for edema or tenderness General Extremity: Negative for edema Neuro oriented x3 and CN's II-XII intact bilaterally Sensorium / Orientation: alert, oriented to person, oriented to place and oriented to time; Negative for confused, lethargic or stuporous Speech: speech normal Motor Exam: strength 5/5 throughout Psych mental status grossly normal and thought process normal Appearance: Negative for unkempt Attitude: No belligerent, No agitated, No aggressive and No hostile Mood & Affect: depressed, anxious and tearful Skin General Skin Exam: Negative for jaundice or pallor Lesions: no lesions Rashes: no rashes Trauma: Negative for abrasion or laceration MDM MDM MDM Narrative Medical decision making narrative: 52-year-old female with anxiety, PTSD and history of alcoholism. Requesting detox. Exam is benign other than her anxiety. Screening labs will be obtained. Have already spoken to the hospitalist she will be admitted for detox. She was given a dose of Ativan 1 mg p.o. for anxiety and nicotine patch. Patient doing well at 2:50 PM. Awaiting room for admission. History & Record Review Discussion w/independent historian: Patient and Family Additional record(s) reviewed:: Prior inpatient record, Prior outpatient record, Prior ED visit and Prior labs Lab Data Attestation: I reviewed the patient's lab results. Lab results narrative: CBC unremarkable. White count of 6. H&H 14.8 and 40. Platelets 271. CMP unremarkable. Gap at 9. BUN and creatinine unremarkable. Liver enzymes unremarkable. Glucose 111. Tox screen negative. Alcohol pending. Labs: Laboratory Results - last 24 hr 09/21/22 09/21/22 09/21/22 13:41 13:41 13:41 WBC 6.6 RBC 4.27 Hgb 14.8 Hct 40.9 MCV 95.8 MCH 34.7 H MCHC 36.2 H RDW Std Deviation 44.9 H RDW Coeff of Debi 12.7 Plt Count 271 MPV 9.3 Immature Gran % (Auto) 0.200 Neut % (Auto) 55.5 Lymph % (Auto) 32.5 [place] % (Auto) 11.1 H Eos % (Auto) 0.2 Baso % (Auto) 0.5 Absolute Neuts (auto) 3.6 Absolute Lymphs (auto) 2.13 Nucleated RBC % 0 Sodium 138 Potassium 3.9 Chloride 102 Carbon Dioxide 27.0 Anion Gap 9 BUN 4 L Creatinine 0.47 L Estim Creat Clear Calc 123.13 Est GFR (MDRD) Af Amer 179 Est GFR (MDRD) Non-Af 148 BUN/Creatinine Ratio 8.6 L Glucose 111 H Calcium 8.9 Total Bilirubin 0.30 AST 26 ALT 24 Alkaline Phosphatase 78 Total Protein 7.5 Albumin 3.9 Globulin 3.6 Albumin/Globulin Ratio 1.1 Urine Opiates Screen NEGATIVE Urine Methadone Screen NEGATIVE Ur Barbiturates Screen NEGATIVE Ur Phencyclidine Scrn NEGATIVE Ur Amphetamines Screen NEGATIVE MDMA (Ecstasy) Screen NEGATIVE U Benzodiazepines Scrn NEGATIVE Urine Cocaine Screen NEGATIVE U Cannabinoids Screen NEGATIVE Ur Drug Screen Comment Discharge Plan Dx/Rx/DC Orders Clinical Impression: Alcohol abuse, Admitted to alcohol detoxification center, Acute post-traumatic stress disorder, Anxiety Disposition Disposition: Acute Care Hospital [facility]
[2022-09-21] MEDS: LORazepam 1 MG Tablet PO (13:25)
[2022-09-21 14:08] LABS: Absolute Lymphocyte Count 2.13 X10^3/uL (0.83-4.51); Absolute Neutrophil Count 3.6 X10^3/uL (2.0-7.7); Basophil# 0.03 X10^3/uL; Basophil% 0.5 % (0-1); Eosinophil# 0.01 X10^3/uL; Eosinophils% 0.2 % (0-5); Hematocrit 40.9 % (37-47); Hemoglobin 14.8 g/dL (12.0-15.0); Lymphocyte # 2.13 X10^3/ul (0.83-4.51); Lymphocyte % 32.5 % (19-41); Mean Corp Hgb Conc 36.2 g/dL (32-36); Mean Corpuscular Hgb 34.7 pg (27.0-32.0); Mean Corpuscular Volume 95.8 fL (81-99); Mean Platelet Vol. 9.3 fl (6.2-12.0); Monocyte# 0.73 X10^3/uL; Monocyte% 11.1 % (0-10); NRBC Flagged by Analyzer 0 % (0-5); Neutrophil # 3.64 X10^3/uL (2.7-7.7); Neutrophil % 55.5 % (47-70); Platelet Count 271 K/mm3 (150-450); RBC Distribution Width CV 12.7 % (11.6-14.6); RBC Distribution Width SD 44.9 fl (35.1-43.9); Red Blood Count 4.27 M/mm3 (4.2-5.4); White Blood Count 6.6 K/mm3 (4.4-11.0)
[2022-09-21 14:09] VITALS: BP 139/93; PULSE 87; RESP 18; TEMP 36.8; O2SAT 94
--- NOTE | 2022-09-21 14:20 | PCM.HP.STD ---
HPI - General General Date of Admission: 09/21/22 Date of Service: 09/21/22 Chief Complaint: Alcohol abuse desiring detoxification and rehabilitation HPI Narrative JAMA FERNANDEZ, is a 52 F with a history of PTSD and alcohol abuse and who presents to the hospital with a desire for detox and long-term rehabilitation. Patient drinks about 2 bottles of wine every day as well as various other alcoholic drinks in addition to this. Patient attributes alcohol abuse to PTSD. States she had several close family members and friends who in motor vehicle accidents. Patient states she is terrified of even being driven in the car. Does admit to having tremulousness and shakes when she goes without a drink. Currently describes having sensation of butterflies/fluttering in her stomach. [facility] Medical History no medical history Home Medications progesterone micronized 100 mg capsule 100 mg PO DAILY 09/21/22 [History Last Taken Unknown] Allergy/AdvReac Type Severity Reaction Status Date / Time shrimp Allergy Hives Verified 09/21/22 13:01 Surgical History no surgical history Social History Smoking Status: Heavy Smoker (>10/day) ROS ROS Narrative Denies any chest pain or shortness of breath. All other systems reviewed and essentially negative as above in the body of the history. Vital Signs Vital Signs Vital Signs: 09/21/22 12:59 09/21/22 14:09 Temperature 36.6 C 36.8 C Temperature Source Temporal Temporal Pulse Rate 115 H 87 Respiratory Rate 16 18 Blood Pressure 135/100 H 139/93 H Blood Pressure Mean 111 108 Pulse Ox 98 94 Oxygen Delivery Method Room Air Room Air Weight Weight: 61.689 kg Body Mass Index (BMI) 22.6 Physical Exam Narrative General exam. Middle-aged woman, chronically ill-appearing, cachectic, depressed appearing, anxious appearing, restless and agitated and fidgety HEENT. Oral mucosa slightly dry, no pallor or jaundice Neck. Neck is supple Heart. First and second heart sounds heard, tachycardic Lungs. Nonlabored breathing. Clear lung neal to auscultation Abdomen. Flat and slightly scaphoid, nontender no organomegaly definitely no hepatomegaly. Extremities. No pedal edema. [employer]ER. Conscious and alert, oriented x3. Anxious, slightly agitated and restless All other organ systems examined and essentially noncontributory. Results Medical Records Data Attestation: I reviewed the patient's medical records Lab / Micro Data Attestation: I reviewed the patient's lab results. Result Diagrams: 09/21/22 13:41 09/21/22 13:41 Labs: Laboratory Results - last 24 hr 09/21/22 13:41: WBC 6.6, RBC 4.27, Hgb 14.8, Hct 40.9, MCV 95.8, MCH 34.7 H, MCHC 36.2 H, RDW Std Deviation 44.9 H, RDW Coeff of Debi 12.7, Plt Count 271, MPV 9.3, Immature Gran % (Auto) 0.200, Neut % (Auto) 55.5, Lymph % (Auto) 32.5, [place] % (Auto) 11.1 H, Eos % (Auto) 0.2, Baso % (Auto) 0.5, Absolute Neuts (auto) 3.6, Absolute Lymphs (auto) 2.13, Nucleated RBC % 0 09/21/22 13:41: Ur Drug Screen Comment Assessment & Plan Assessment/Plan (1) Alcohol abuse: PLAN: Plan 1. Alcohol abuse. Patient at high risk for alcohol withdrawal and possible delirium tremens. We will start detoxification. Placed on CIWA protocol. Consult to social media analyst. We will keep on telemetry. Placed on clonidine to help dampen the central sympathetic overactivity. Keep on telemetry. High-dose thiamine 2. Elevated liver enzymes. Most likely alcoholic hepatitis. We will trend these. No tenderness or pain. 3. History of PTSD. 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
[2022-09-21 14:29] LABS: ALB/GLOB Ratio 1.1 RATIO (0.9-2.4); AST(SGOT) 26 U/L (15-37); Alanine Aminotransfer ALT/SGPT 24 U/L (13-56); Albumin, Serum 3.9 g/dL (3.2-5.0); Alkaline Phosphatase 78 U/L (45-117); Anion Gap 9 (5-15); BUN 4 mg/dL (7-18); BUN/Creat Ratio 8.6 RATIO (10-20); Calcium,Total 8.9 mg/dL (8.5-10.1); Chloride 102 mmol/L (98-107); Creatinine, Serum 0.47 mg/dL (0.55-1.02); EST Glomerular Filtration Rate 148 mL/min (>60); Est Glom Filt Rate - Afr Amer 179 mL/min (>60); Estimated Creatinine Clearance 123.13 ml/min; Globulin 3.6 g/dL (2.2-4.2); Glucose 111 mg/dL (74-106); Potassium 3.9 mmol/L (3.5-5.1); Protein, Total 7.5 g/dL (6.4-8.2); Sodium Level 138 mmol/L (136-145)
[2022-09-21 14:39] LABS: Amphetamine Urine VISTA NEGATIVE (<1000 ng/mL); Barbiturate Urine VISTA NEGATIVE (< 200 ng/mL); Benzodiazepine Urine VISTA NEGATIVE (< 200 ng/mL); Cocaine Urine VISTA NEGATIVE (< 300 ng/mL); Ecstacy Urine VISTA NEGATIVE (< 500 ng/mL); Methadone Urine VISTA NEGATIVE (< 300 ng/mL); PCP Urine VISTA NEGATIVE (< 25 ng/mL); THC Urine VISTA NEGATIVE (< 50 ng/mL); Vista UDS pH Range 7
--- NOTE | 2022-09-21 14:45 | CM.ED ---
Addendum entered by Анна Alvarenga 09/21/22 15:25: Cesar addictions navigator, updated patient is being admitted. Анна SPEAR, LSIW Original Note: Social Work Note Referral Source: case find Referral Reason: RAMP SW met with patient and patient's guests and introduced herself and role as [facility] Auxiliary Equipment Operator. Patient introduced her and friend and was in agreement to speak to SW with them present. SW engaged patient in conversation regarding RAMP program and briefly reviewed rules including patient' belongings being locked up, no guests permitted, program is voluntary and patient meets with addictions therapist to discuss discharge/after care plan. Patient reports some concerns regarding limited information being provided to patient's . Patient asked her what if they try to kill me and give me fentanyl. SW provided emotional support and reassurance regarding appropriate care by staff. Patient's and friend also provided reassurance, explaining [facility] staff have been kind to patient and want to help. Patient reports understanding and explained she will sign the contract to participate in RAMP for etoh detox. No other needs voiced at this time. Plan: RAMP Анна SPEAR, YOGI
[2022-09-21] MEDS: Ondansetron 4 MG/2 ML Vial IV (15:08)
[2022-09-21 17:00] VITALS: BP 132/92; PULSE 94; RESP 16; TEMP 37.2; O2SAT 96; BMI 19.0
[2022-09-21] MEDS: cloNIDine HCl 0.1 MG Tablet PO ×2 (17:41→23:15)
[2022-09-21] MEDS: NSY 0.9% NS BOLUS 1000 ML IV (17:41)
[2022-09-21] MEDS: chlordiazePOXIDE 25 MG Capsule 50 MG PO ×2 (17:42→21:27)
[2022-09-21] MEDS: 0.9% Saline Lock 10 ML Syringe IV (18:16)
[2022-09-21 21:18] VITALS: BP 130/90; PULSE 113; RESP 16; TEMP 36.9; O2SAT 96
[2022-09-21 21:41] VITALS: PULSE 104
[2022-09-21 22:07] VITALS: PULSE 104
[2022-09-22 04:02] VITALS: PULSE 82
[2022-09-22 04:38] VITALS: BP 125/86; PULSE 82; RESP 16; TEMP 36.9; O2SAT 98
--- NOTE | 2022-09-22 07:23 | PN.HOSP_ITS ---
Reason for Visit Reason for Visit: Alcohol detox Subjective Subjective Patient is a 52-year-old female with a history of PTSD and alcohol abuse who presented to the emergency department at [facility] on 09/21/2022 desiring detox and long-term rehabilitation. She reported she drinks about 2 bottles of wine every day as well as various other alcohol drinks in addition to this. She reports she uses alcohol to manage her PTSD. On presentation she admitted and being tremulous and having shakes when she goes without drinking. At presentation she was only complaining of butterflies in her stomach. Labs are unremarkable. Alcohol level on presentation was 336. Objective Data Objective Data Vital Signs: Vital Signs Temp Pulse Resp BP Pulse Ox O2 Del Method 98.4 F 82 16 125/86 H 98 Room Air 09/22/22 04:38 09/22/22 04:38 09/22/22 04:38 09/22/22 04:38 09/22/22 04:38 09/22/22 04:38 Oxygen Delivery Method Room Air Weight: 51.9 kg Body Mass Index (BMI) 19.0 Intake & Output: Intake and Output for Last 24 Hours 09/20/22 09/21/22 09/22/22 23:59 23:59 23:59 Intake Total 644 / 644 52 / 52 Balance 644 / 644 52 / 52 Lab / Micro Data Result Diagrams: 09/21/22 13:41 09/21/22 13:41 Labs: Laboratory Results - last 24 hr 09/21/22 13:41: WBC 6.6, RBC 4.27, Hgb 14.8, Hct 40.9, MCV 95.8, MCH 34.7 H, MCHC 36.2 H, RDW Std Deviation 44.9 H, RDW Coeff of Debi 12.7, Plt Count 271, MPV 9.3, Immature Gran % (Auto) 0.200, Neut % (Auto) 55.5, Lymph % (Auto) 32.5, Casey % (Auto) 11.1 H, Eos % (Auto) 0.2, Baso % (Auto) 0.5, Absolute Neuts (auto) 3.6, Absolute Lymphs (auto) 2.13, Nucleated RBC % 0 09/21/22 13:41: Sodium 138, Potassium 3.9, Chloride 102, Carbon Dioxide 27.0, Anion Gap 9, BUN 4 L, Creatinine 0.47 L, Estim Creat Clear Calc 123.13, Est GFR (MDRD) Af Amer 179, Est GFR (MDRD) Non-Af 148, BUN/Creatinine Ratio 8.6 L, Glucose 111 H, Calcium 8.9, Total Bilirubin 0.30, AST 26, ALT 24, Alkaline Phosphatase 78, Total Protein 7.5, Albumin 3.9, Globulin 3.6, Albumin/Globulin Ratio 1.1 09/21/22 13:41: Ethyl Alcohol 336.0 H* 09/21/22 13:41: Urine Opiates Screen NEGATIVE, Urine Methadone Screen NEGATIVE, Ur Barbiturates Screen NEGATIVE, Ur Phencyclidine Scrn NEGATIVE, Ur Amphetamines Screen NEGATIVE, MDMA (Ecstasy) Screen NEGATIVE, U Benzodiazepines Scrn NEGATIVE, Urine Cocaine Screen NEGATIVE, U Cannabinoids Screen NEGATIVE, Ur Drug Screen Comment Assessment & Plan Assessment/Plan (1) Alcohol withdrawal: (2) Alcohol abuse: (3) Alcoholic hepatitis: PLAN: Plan Alcohol withdrawal/alcohol abuse -Patient drinks 2 bottles of wine plus various mixed drinks daily -Sounds this is how she treats her PTSD -We will transition patient from Librium to phenobarb -Continue thiamine and folate -Supportive medications for withdrawal symptoms -180 to evaluate patient-it sounds as if she would like inpatient treatment Alcoholic hepatitis -Transaminases have normalized PTSD -It sounds as if she manages her PTSD with alcohol use -Would recommend outpatient follow-up with counselor and psychiatry Tobacco abuse -Nicotine patch -Recommend cessation DVT prophylaxis -Low risk -Early ambulation protocol CODE STATUS -Full code Charges/Coding Visit Charges Inpatient E&M: 17619 Subs Hosp L2
[2022-09-22 08:29] LABS: ALB/GLOB Ratio 1.1 RATIO (0.9-2.4); AST(SGOT) 20 U/L (15-37); Alanine Aminotransfer ALT/SGPT 22 U/L (13-56); Albumin, Serum 3.2 g/dL (3.2-5.0); Alkaline Phosphatase 68 U/L (45-117); Anion Gap 5 (5-15); BUN 6 mg/dL (7-18); BUN/Creat Ratio 12.3 RATIO (10-20); Calcium,Total 8.8 mg/dL (8.5-10.1); Chloride 107 mmol/L (98-107); Creatinine, Serum 0.49 mg/dL (0.55-1.02); EST Glomerular Filtration Rate 141 mL/min (>60); Est Glom Filt Rate - Afr Amer 171 mL/min (>60); Estimated Creatinine Clearance 107.54 ml/min; Globulin 2.8 g/dL (2.2-4.2); Glucose 93 mg/dL (74-106); Phosphorus 3.1 mg/dL (2.5-4.9); Potassium 3.9 mmol/L (3.5-5.1); Sodium Level 140 mmol/L (136-145)
[2022-09-22 08:30] VITALS: BP 137/89; PULSE 95; RESP 16; TEMP 36.7; O2SAT 98
[2022-09-22] MEDS: cloNIDine HCl 0.1 MG Tablet PO (08:42)
[2022-09-22] MEDS: Folic Acid 1 MG Tablet PO (08:42)
[2022-09-22] MEDS: Phenobarbital 32.4 MG Tablet 97.2 MG PO (08:42)
--- NOTE | 2022-09-22 10:35 | NURSING ---
Patient requesting to leave AMA Dr. Armstrong aware. AMA papers signed and called for a ride.
--- NOTE | 2022-09-22 10:35 | PCM.DC.SUM ---
Providers Date of Admission: 09/21/22 Date of Discharge: 09/22/22 Primary Care Physician: No Primary Care Phys Reason For Visit: ALCOHOL ABUSE, EARLY WITHDRAWAL Diagnosis Discharge Diagnosis (1) Alcohol withdrawal: Status: Acute Code(s): F10.239 - Alcohol dependence with withdrawal, unspecified (2) Alcohol abuse: Status: Acute Code(s): F10.10 - Alcohol abuse, uncomplicated (3) Alcoholic hepatitis: Status: Acute Code(s): K70.10 - Alcoholic hepatitis without ascites Medications at Discharge Home Medications progesterone micronized 100 mg capsule 100 mg PO DAILY 09/21/22 Hospital Course Operations None Procedures None Summary of Care Provided Minutes Spent on Discharge: 20 Hospital Course: Patient is a 52-year-old female with a history of PTSD and alcohol abuse who presented to the emergency department at [facility] on 09/21/2022 desiring detox and long-term rehabilitation. She reported she drinks about 2 bottles of wine every day as well as various other alcohol drinks in addition to this. She reports she uses alcohol to manage her PTSD. On presentation she admitted and being tremulous and having shakes when she goes without drinking. At presentation she was only complaining of butterflies in her stomach. Labs were unremarkable. Alcohol level on presentation was 336. Patient was initially treated with Librium and I transitioned this to phenobarb on the a.m. of 07/23/2022. She indicated she was feeling much better and wanted to go home. We discussed that alcohol is a dangerous withdrawal and can actually cause seizure and and and severe instances. She voiced understanding but wanted to go home and be with her for Mother's Day. She was upset that she was in a house that visitors while she was hospitalized. After extensive discussion she elected she wanted to leave AGAINST MEDICAL ADVICE on 09/22/2022. I advised the patient to come back if she would like any further help with her detox or any other issues she has ongoing. Discharge diagnoses: Acute alcohol withdrawal Alcoholism Alcoholic hepatitis-resolved Tobacco abuse PTSD Anxiety Physical Exam Const alert, oriented x3 and no apparent distress Constitutional Narrative: Thin, middle-aged, white female, sitting up in bed, appears much older than stated age, appears comfortable, nontoxic General Appearance: cooperative, comfortable, well kempt and well developed Exam Limitations: no limitations Nutritional Appearance: thin HEENT head/scalp atraumatic and moist oral mucous membranes Resp normal respiratory effort, no retractions, no use of accessory muscles and No clear to auscultation bilaterally Resp Narrative: Diffusely diminished with few end expiratory wheeze but otherwise clear Auscultation: wheezes; Negative for rales or rhonchi Cardio regular rate, regular rhythm, S1 normal heart sound, S2 normal heart sound, no murmurs, no rub, no gallops and no clicks GI normal to inspection, nondistended, normoactive bowel sounds and soft to palpation Extremity no clubbing, cyanosis or edema Extremity Narrative: 2+ pedal pulses Neuro oriented x3, CN's II-XII intact bilaterally, moves all extremities and no focal motor deficits Neuro Narrative: No tremor noted Speech: speech normal Psych Mood & Affect: anxious Weight / BMI Weight Weight: 51.9 kg Body Mass Index (BMI) 19.0 ABG / Lab / Microbiology Data Result Diagrams: 09/21/22 13:41 09/22/22 07:05 Laboratory: Laboratory Results - last 24 hr 09/21/22 13:41: WBC 6.6, RBC 4.27, Hgb 14.8, Hct 40.9, MCV 95.8, MCH 34.7 H, MCHC 36.2 H, RDW Std Deviation 44.9 H, RDW Coeff of Debi 12.7, Plt Count 271, MPV 9.3, Immature Gran % (Auto) 0.200, Neut % (Auto) 55.5, Lymph % (Auto) 32.5, Wood % (Auto) 11.1 H, Eos % (Auto) 0.2, Baso % (Auto) 0.5, Absolute Neuts (auto) 3.6, Absolute Lymphs (auto) 2.13, Nucleated RBC % 0 09/21/22 13:41: Sodium 138, Potassium 3.9, Chloride 102, Carbon Dioxide 27.0, Anion Gap 9, BUN 4 L, Creatinine 0.47 L, Estim Creat Clear Calc 123.13, Est GFR (MDRD) Af Amer 179, Est GFR (MDRD) Non-Af 148, BUN/Creatinine Ratio 8.6 L, Glucose 111 H, Calcium 8.9, Total Bilirubin 0.30, AST 26, ALT 24, Alkaline Phosphatase 78, Total Protein 7.5, Albumin 3.9, Globulin 3.6, Albumin/Globulin Ratio 1.1 09/21/22 13:41: Ethyl Alcohol 336.0 H* 09/21/22 13:41: Urine Opiates Screen NEGATIVE, Urine Methadone Screen NEGATIVE, Ur Barbiturates Screen NEGATIVE, Ur Phencyclidine Scrn NEGATIVE, Ur Amphetamines Screen NEGATIVE, MDMA (Ecstasy) Screen NEGATIVE, U Benzodiazepines Scrn NEGATIVE, Urine Cocaine Screen NEGATIVE, U Cannabinoids Screen NEGATIVE, Ur Drug Screen Comment 09/22/22 07:05: Sodium 140, Potassium 3.9, Chloride 107, Carbon Dioxide 28.0, Anion Gap 5, BUN 6 L, Creatinine 0.49 L, Estim Creat Clear Calc 107.54, Est GFR (MDRD) Af Amer 171, Est GFR (MDRD) Non-Af 141, BUN/Creatinine Ratio 12.3, Glucose 93, Calcium 8.8, Phosphorus 3.1, Total Bilirubin 0.70, AST 20, ALT 22, Alkaline Phosphatase 68, Total Protein 6.0 L, Albumin 3.2, Globulin 2.8, Albumin/Globulin Ratio 1.1 D/C Instructions Discharge Diet: Low fat / Low cholesterol Discharge Activity: Return to Normal Activity Meaningful Use Info Meaningful Use Diagnoses (Choose all that apply): None applicable Discharge Plan Admission Admit Date/Time: 09/21/22 14:19 Primary Reason for Your Visit: Acute alcohol withdrawal requesting detox Attending Provider: Sneha Armstrong Primary Care Provider: Keyanna Physician,No Primary Consulting Providers: Bettie Light Discharge Orders/Prescriptions Prescriptions: Continued progesterone micronized 100 mg capsule 100 mg PO DAILY Referrals / Follow Up: Care Physician,No Primary [Primary Care Provider] - [facility] Doctor,Out of [Non-Staff] - Disposition Disposition (needs filled in before D/C Order can be placed): Against Medical Advice Charges/Coding Visit Charges Inpatient E&M: 07993 Disch Hosp
[2022-09-22 10:49] VITALS: BP 137/89; PULSE 95; RESP 18; TEMP 36.7; O2SAT 97
== END 2022-09-22 11:20 | disposition left against medical advice (07) | DRG 894 ==
LOC: ED 13:29 → MS3 15:15
PROVIDERS: Admitting Provider Internal Medicine; Emergency Provider Emergency Medicine; Visit Provider Internal Medicine
DX: F10.229 Alcohol dependence with intoxication, unspecified (principal); F10.239 Alcohol dependence with withdrawal, unspecified; K70.10 Alcoholic hepatitis without ascites; F17.200 Nicotine dependence, unspecified, uncomplicated; F41.9 Anxiety disorder, unspecified; Y90.8 Blood alcohol level of 240 mg/100 ml or more; F43.11 Post-traumatic stress disorder, acute; Z53.29 Procedure and treatment not carried out because of patient's decision for other reasons
CPT/HCPCS: 36415; 80053; 80307; 82077; 84100; 85025; 99284; J7030; A4216; J2405; J3490